=== PATIENT | female | born 1990 | race Caucasian/White ===

== ENCOUNTER 2021-04-24 20:26 | Emergency (ER) | payer OTHER, SELFPAY ==
[2021-04-24 21:10] VITALS: PULSE 72; RESP 18; TEMP 36.6; O2SAT 99
--- NOTE | 2021-04-24 21:56 | ED_ITS ---
HPI - Female Genitourinary General Chief complaint: Urogenital-Female Stated complaint: UTI Time Seen by Provider: 04/24/21 21:55 Source: patient Mode of arrival: Ambulatory Limitations: no limitations History of Present Illness HPI Narrative: Female nonsmoker with noncontributory medical history presents with her in the chief complaint of 24 hours of burning, frequency and urgency with urination. She denies any vaginal bleeding or discharge. She denies fever or chills. She denies nausea, vomiting or diarrhea. She does have some mild low back discomfort. She is otherwise well and free of complaint. Related Data Previous Rx's Medication Instructions Recorded ciprofloxacin HCl 500 mg tablet 500 mg PO BID 6 Days #12 tab 04/24/21 (Cipro) Allergies Allergy/AdvReac Type Severity Reaction Status Date / Time cefaclor [From [facility]] Allergy Severe Hives Verified 04/24/21 22:14 Review of Systems Review of Systems Narrative: GENERAL: Denies chills, fatigue, malaise, fever, sweats. HEENT: Denies sinus pain, ear pain, sore throat, difficulty swallowing, dizziness. RESPIRATORY: Denies dyspnea, cough, wheezing, hemoptysis, sputum. CARDIOVASCULAR: Denies chest pain, palpitations, orthopnea, edema, GASTROINTESTINAL: Denies nausea, vomiting, abdominal pain, diarrhea, constipation, melena. : See HPI MUSCULOSKELETAL: denies weakness, joint pain, or bony pain SKIN: Denies rash, skin lesions, or other NEUROLOGIC: Denies weakness, headache, numbness, change in speech, confusion, seizures, incoordination. PSYCHIATRIC: No concerning psychosocial issues. 12 point review of systems is negative except for those stated above Patient History alcohol intake frequency: a few times a month Substance Use Type: does not use Exam Narrative Exam Narrative: GEN: AOx3 and in mild distress EYES: Pupils are equal, round, and reactive to light and accommodation. Extraoccular muscles are intact bilaterally. There is no subconjunctival hemorrhage or exudate. CHEST: Lungs are clear to auscultation bilaterally and free of wheezes, rales, or rhonchi. Heart rate is regular rhythm, there are no murmurs, clicks, rubs, or gallops. There is no chest wall tenderness. ABD: Abdomen is soft and nontender. There is no guarding or rebound. Bowel sounds are normal in all 4 quadrants. There is no mass or organomegaly. BACK: no CVA tenderness EXT: Full painless ROM of all extremities with no loss of sensation or strength. SKIN: Warm, pink, and dry. No erythema or rash Initial Vital Signs Initial Vital Signs: Vital Signs Temperature 97.9 F 04/24/21 21:10 Pulse Rate 72 04/24/21 21:10 Respiratory Rate 18 04/24/21 21:10 Pulse Oximetry 99 04/24/21 21:10 Course Orders Ordered: ED Orders 04/24/21 21:10 Urine Culture Stat Urine Microscopic Stat Discontinued Medications Levofloxacin (Levofloxacin 250 Mg Tablet) 500 mg PO NOW ONE Stop: 04/24/21 22:06 Last Admin: 04/24/21 22:08 Dose: 500 mg Documented by: COCO Vital Signs Vital signs: Vital Signs - 8 hr 04/24/21 21:10 Temperature 97.9 F Pulse Rate 72 Respiratory Rate 18 Pulse Oximetry 99 MDM - Female Genitourinary Lab Data Labs: Lab Results 04/24/21 Range/Units 21:10 Urine RBC 10-30/hpf H (0-5/HPF) Urine WBC 10-30/hpf H (0-5/HPF) Urine Bacteria Many (>30) H (None) Ur Culture Indicated? Specimen cultured Point of Care Testing Test Results Negative Urine Dip Bedside Urine Glucose Negative Bedside Urine Bilirubin - Negative Bedside Urine Ketone - Negative Urine Specific [place] 1.015 Bedside Urine Occult Blood +++ Bedside Urine pH 7.5 Bedside Urine Protein + 30 Bedside Urine Urobilinogen - Negative Bedside Urine Nitrite - Negative Bedside Urine Leukocytes ++ 125 Esterase Discharge Plan Departure Patient Disposition: Home Clinical Impression: Urinary tract infection Qualifiers: Urinary tract infection type: acute cystitis Hematuria presence: without hematuria Qualified Code(s): N30.00 - Acute cystitis without hematuria Instructions: DI for Urinary Tract Infection (UTI) Activity Restrictions/Additional Instructions: *You have been diagnosed with [ UTI] *What to do: *Please continue to take your regular medications as directed. [ ] New medication prescriptions sent to your pharmacy: [ ] [ x] New medication written as a paper prescription [ ] No new medications given *Please follow up with your primary care provider in 2-3 days, call for an appointment. Let them know you were seen in the Emergency Department and that we ask that you be seen in follow up. We will electronically transmit a record of today's note if your PCP is in our system *If you do not have a primary care provider please contact the [facility] Resource line at [phone]. They will ask some questions about your medical history and help get you set up with a doctor in the community. *Return to Emergency Department if you should have any new, worsening or concerning symptoms, such as [fever greater than 101 F, shaking chills, worsening pain, persistent vomiting or other bothersome symptoms] Prescriptions: New ciprofloxacin HCl [Cipro] 500 mg tablet 500 mg PO BID 6 Days Qty: 12 RF: 0
[2021-04-24 22:07] LABS: Bacteria Urine Many (>30); Culture Indicated Urine Specimen Cultured; RBC Urine 10-30/HPF (0-5/HPF); WBC Urine 10-30/HPF (0-5/HPF)
[2021-04-24] MEDS: levoFLOXacin 250 MG TABLET 500 MG PO (22:08)
== END 2021-04-24 22:16 | disposition home or self-care (01) ==
PROVIDERS: Emergency Provider Emergency Medicine
DX: M54.5 Low back pain (principal); N30.00 Acute cystitis without hematuria
CPT/HCPCS: 81003; 81015; 81025; 87077; 87086; 87186; 99283

== ENCOUNTER → 2025-03-15 08:59 | Outpatient (CLI) | payer OTHER, SELFPAY ==
--- NOTE | 2025-03-15 09:01 | DI.MRI.S_ITS ---
PROCEDURE: MR PELVIS WO/W CON INDICATIONS: Chronic pelvic pain, pain w/ defecation TECHNIQUE: Coronal HASTE, sagittal breath-hold T2 FSE; axial T1 FSE with and without fat saturation through the pelvis. Optional long- and short-axis uterine nonbreath-hold T2 FSE through the uterus. Sagittal or axial dynamic VIBE during administration of contrast. Post-contrast axial or coronal VIBE/2-D FLASH with fat saturation from the iliac crests to the symphysis. Optional diffusion weighted imaging and ADC may be performed. COMPARISON: None. FINDINGS: Image quality: Excellent. Uterus: Globular uterus is anteverted by retroflexed, indenting on the mid rectum. The junctional zone is normal in thickness at 8 mm. 2.1 cm anterior fundal and 2.0 cm right mid body myometrial T2 hypointense masses consistent with fibroids are noted. There is a submucosal, and partially intraluminal mass in the left fundus demonstrating lobular margins, predominantly T2 hypointensity and central T2 hyperintensity. Overall it measures about 2.5 x 2.3 by 2.4 cm. This is most likely a fibroid. The endometrium is normal thickness and appearance. No definite subendometrial T2 hyperintensities or cysts. The cervix is normal with a few tiny nabothian cysts. Adnexa: Ovaries are both slightly prominent. The right ovary contains numerous follicles of varying sizes, at least four demonstrate T1 and T2 hyperintensity. There is a dominant follicle in the left ovary measuring 3.2 cm. Urinary system: The urinary bladder is normal without suspicious nodule. The visible portion of the urethra is normal. There is small Bartholin's gland cyst measuring 1 cm at the introitus. Nodes and vessels: No pelvic or inguinal adenopathy by size criteria. Iliac vessels are normal in size. Bowel and peritoneum: No pathologic free pelvic fluid. Inferior colon and small bowel loops are normal in caliber. Soft tissues: No inguinal hernias. No findings of pelvic floor incompetence in the absence of provocation. Bones: Marrow demonstrates normal overall signal. IMPRESSION: Retroflexed, fibroid uterus with a 2.5 cm submucosal mass in the left fundus extending into the left endometrium. Several small T1 hyperintensities within the right ovary may be hemorrhagic cysts and/or endometriomas. No other mass to suggest diffuse pelvic endometriosis. Dictated by: Azra Puente M.D. on 03/15/2025 at 15:16 Approved by: Azra Puente M.D. on 03/15/2025 at 15:35
== END ==
LOC: MRI 09:00
PROVIDERS: PCP Physician Assistant; Referring Provider Obstetrics & Gynecology; Visit Provider Obstetrics & Gynecology
DX: N92.1 Excessive and frequent menstruation with irregular cycle (principal); N94.19 Other specified dyspareunia; N85.9 Noninflammatory disorder of uterus, unspecified; N75.0 Cyst of Bartholin's gland; R19.8 Other specified symptoms and signs involving the digestive system and abdomen; R10.2 Pelvic and perineal pain; G89.29 Other chronic pain; Z87.42 Personal history of other diseases of the female genital tract
CPT/HCPCS: 72197; A9579